=== PATIENT | female | born 1980 | race Caucasian/White ===

== ENCOUNTER 2016-05-30 15:18 | Emergency (ER) | payer BC ==
[2016-05-30 16:40] VITALS: BP 99/65
--- NOTE | 2016-05-30 16:44 | UC ---
Throat Pain/Nasal Kennedy HPI - HPI Summary HPI Summary: long lasting sinus congestion. just doesnt go away, denies fever or throat pain. - History of Current Complaint Stated Complaint: SINUSES Time Seen by Provider: 05/30/16 16:32 Hx Obtained From: Patient Hx Last Menstrual Period: Mirena ?: No Onset/Duration: Gradual Onset, Lasting Weeks Severity: Moderate Associated Signs & Symptoms: Positive: Sinus Discomfort Related History: Seasonal Allergies - Allergies/Home Medications Allergies/Adverse Reactions: Allergies Allergy/AdvReac Type Severity Reaction Status Date / Time Sulfa Antibiotics Allergy Hives Verified 05/01/15 11:00 PMH/Surg Hx/FS Hx/Imm Hx Previously Healthy: Yes Endocrine History Of: Denies: Diabetes Cardiovascular History Of: Denies: Cardiac Disorders Respiratory History Of: Denies: COPD GI/ History Of: Denies: Gastroesophageal Reflux Neurological History Of: Denies: CVA Psychological History Of: Denies: Anxiety Cancer History Of: Denies: Lung Cancer Other History Of: Negative For: HIV - Surgical History Surgical History: Yes Surgery Procedure, Year, and Place: VARICOSE VEIN REMOVAL. Laminectomy L5-S1 - Family History Known Family History: Negative: Cardiac Disease, Hypertension - Social History Alcohol Use: None Substance Use Type: None Smoking Status (MU): Never Smoked Tobacco Have You Smoked in the Last Year: No Review of Systems Constitutional: Negative Skin: Negative Eyes: Negative ENT: Other - fronal sinus pressure Respiratory: Negative Cardiovascular: Negative Gastrointestinal: Negative Genitourinary: Negative Motor: Negative Neurovascular: Negative Musculoskeletal: Negative Neurological: Headache Psychological: Negative All Other Systems Reviewed And Are Negative: Yes Physical Exam Triage Information Reviewed: Yes Appearance: Well-Appearing, Well-Nourished, Pain Distress Vital Signs Reviewed: Yes Eye Exam: Normal Eyes: Positive: Conjunctiva Clear ENT: Positive: Hearing grossly normal, Pharyngeal erythema, Nasal congestion, TMs normal Dental Exam: Normal Neck exam: Normal Neck: Positive: Supple, Nontender, No Lymphadenopathy Respiratory Exam: Normal Respiratory: Positive: Chest non-tender, Lungs clear, Normal breath sounds Cardiovascular Exam: Normal Cardiovascular: Positive: RRR, No Murmur, Pulses Normal Abdominal Exam: Normal Abdomen Description: Positive: Nontender, No Organomegaly, Soft Bowel Sounds: Positive: Present Musculoskeletal Exam: Normal Musculoskeletal: Positive: Strength Intact, ROM Intact, No Edema Neurological Exam: Normal Neurological: Positive: Alert, Muscle Tone Normal Psychological Exam: Normal Skin Exam: Normal Throat Pain/Nasal Course/Dx - Course Course Of Treatment: hx obtianed, exam performed, meds reviewed, educated on sinus drainage. prednisone prescribed - Differential Dx/Diagnosis Differential Diagnosis/HQI/PQRI: Influenza, Laryngitis, Otitis Media, Pharyngitis, Sinusitis, Tonsillitis, URI Provider Diagnoses: sinus congestions. [place] Discharge - Discharge Plan Condition: Stable Disposition: HOME Prescriptions: predniSONE TAB* [Deltasone TAB*] 40 mg PO DAILY #10 tab Patient Education Materials: Rhinosinusitis (ED) Additional Instructions: 1. take the prednisone as prescribed. 2. Steam and eucalyptus will help open sinuses 3. Neti pot use recommended.
== END 2016-05-30 17:02 | disposition home or self-care (01) ==
LOC: UCCORT 15:18
DX: R09.81 Nasal congestion (principal); R51 Headache; Z88.2 Allergy status to sulfonamides
CPT/HCPCS: 99212; G0463

== ENCOUNTER 2016-08-16 12:29 | Emergency (ER) | payer BC ==
[2016-08-16 14:19] VITALS: BP 92/55
--- NOTE | 2016-08-16 14:36 | UC ---
Throat Pain/Nasal Kennedy HPI - HPI Summary HPI Summary: 36 yo female with sinus pressure and pain as well as post nasal drip for > 1 1/ 2 weeks no f/c has sore throat and swollen glands MANS[place] some myalgias and low energy - History of Current Complaint Chief Complaint: UCRespiratory Stated Complaint: SINUS COMPLAINT Time Seen by Provider: 08/16/16 14:27 Hx Obtained From: Patient Hx Last Menstrual Period: unknown, Mirena Onset/Duration: Gradual Onset, Lasting Weeks Severity: Moderate Pain Intensity: 4 Pain Scale Used: 0-10 Numeric Cough: Nonproductive Associated Signs & Symptoms: Positive: Sinus Discomfort, Nasal Discharge - Allergies/Home Medications Allergies/Adverse Reactions: Allergies Allergy/AdvReac Type Severity Reaction Status Date / Time Sulfa Antibiotics Allergy Hives Verified 08/16/16 14:19 PMH/Surg Hx/FS Hx/Imm Hx Previously Healthy: Yes - LUPUS Other History Of: Negative For: HIV - Surgical History Surgical History: Yes Surgery Procedure, Year, and Place: VARICOSE VEIN REMOVAL. Laminectomy L5-S1 - Family History Known Family History: Positive: Other - EUNICE Negative: Cardiac Disease, Hypertension - Social History Alcohol Use: None Substance Use Type: None Smoking Status (MU): Never Smoked Tobacco Have You Smoked in the Last Year: No - Immunization History Most Recent Influenza Vaccination: [id number] Review of Systems Constitutional: Negative Skin: Negative Eyes: Negative ENT: Sore Throat, Ear Ache, Nasal Discharge, Sinus Congestion, Sinus Pain/ Tenderness Respiratory: Cough Cardiovascular: Negative Gastrointestinal: Negative Genitourinary: Negative Motor: Negative Neurovascular: Negative Musculoskeletal: Negative Neurological: Negative Psychological: Negative All Other Systems Reviewed And Are Negative: Yes Physical Exam Triage Information Reviewed: Yes Appearance: Well-Appearing, No Pain Distress, Well-Nourished Vital Signs: Initial Vital Signs Temp 98.3 F 08/16/16 14:14 Pulse 71 08/16/16 14:14 Resp 16 08/16/16 14:14 BP 92/55 08/16/16 14:14 Pulse Ox 98 08/16/16 14:14 Vital Signs Reviewed: Yes Eyes: Positive: Conjunctiva Clear ENT: Positive: Hearing grossly normal, Pharyngeal erythema, Nasal congestion, Nasal drainage. Negative: TMs normal - unable to see right TM due to cerumen, Tonsillar swelling, Tonsillar exudate, Trismus, Muffled/hoarse voice Dental: Negative: Abscess @ Neck: Positive: Supple, Enlarged Nodes @ - anterior cervical Respiratory: Positive: Lungs clear, Normal breath sounds, No respiratory distress, No accessory muscle use Cardiovascular: Positive: RRR, No Murmur, Pulses Normal Musculoskeletal: Positive: ROM Intact, No Edema Neurological Exam: Normal Neurological: Positive: Alert Psychological Exam: Normal Skin Exam: Normal Throat Pain/Nasal Course/Dx - Course Course Of Treatment: pt has flonase at home, I advised her to use it as well as saline nasal spray (otc) - Differential Dx/Diagnosis Provider Diagnoses: acute sinusitis Discharge - Discharge Plan Condition: Stable Disposition: HOME Prescriptions: Clarithromycin TAB* [Biaxin 500 MG TAB*] 500 mg PO BID #20 tab Fluconazole 150 MG (NF) [Diflucan 150 mg (NF)] 150 mg PO ONCE #1 tab Patient Education Materials: Sinusitis (ED) Referrals: Diana Elias PA [Primary Care Provider] - 1 Week (if not better)
== END 2016-08-16 14:40 | disposition home or self-care (01) ==
LOC: UCCORT 12:29
DX: J01.90 Acute sinusitis, unspecified (principal); M32.9 Systemic lupus erythematosus, unspecified; Z88.2 Allergy status to sulfonamides
CPT/HCPCS: 99212; G0463

== ENCOUNTER 2016-09-24 09:05 | Emergency (ER) | payer BC ==
[2016-09-24 11:11] VITALS: BP 95/57
--- NOTE | 2016-09-24 11:39 | UC ---
Ear Complaint HPI - HPI Summary HPI Summary: 3 days of worsening pain in rt ear and jaw pain. 5/10, intermittent throbbing pain that last for minutes to hour. can close jaw all the way on rt. - History of Current Complaint Chief Complaint: UCEar Stated Complaint: EAR COMPLAINT Time Seen by Provider: 09/24/16 11:13 Hx Obtained From: Patient Hx Last Menstrual Period: n/a on Mirena ?: No Onset/Duration: Gradual Onset, Lasting Days - 3, Still Present Severity Initially: Moderate Severity Currently: Moderate Aggravating Factors: Nothing Alleviating Factors: Nothing Associated Signs/Symptoms: Negative: Discharge, Hearing Loss, Foreign Body Sensation, Trauma to Ear, Swelling @, URI Symptoms - Allergies/Home Medications Allergies/Adverse Reactions: Allergies Allergy/AdvReac Type Severity Reaction Status Date / Time Sulfa Antibiotics Allergy Hives Verified 09/24/16 11:11 PMH/Surg Hx/FS Hx/Imm Hx - Additional Past Medical History Additional PMH: lupus Other History Of: Negative For: HIV - Surgical History Surgical History: Yes Surgery Procedure, Year, and Place: VARICOSE VEIN REMOVAL. Laminectomy L5-S1 - Family History Known Family History: Positive: Other - EUNICE Negative: Cardiac Disease, Hypertension - Social History Lives: With Family Alcohol Use: None Substance Use Type: None Smoking Status (MU): Never Smoked Tobacco Have You Smoked in the Last Year: No - Immunization History Most Recent Influenza Vaccination: [id number] Review of Systems Constitutional: Negative Skin: Negative Eyes: Negative ENT: Ear Ache Respiratory: Negative Cardiovascular: Negative Neurological: Headache - none currently Psychological: Negative All Other Systems Reviewed And Are Negative: Yes Physical Exam Triage Information Reviewed: Yes Appearance: Well-Appearing, No Pain Distress, Well-Nourished Vital Signs: Initial Vital Signs Temp 98.7 F 09/24/16 11:07 Pulse 79 09/24/16 11:07 Resp 14 09/24/16 11:07 BP 95/57 09/24/16 11:07 Pulse Ox 99 09/24/16 11:07 Vital Signs Reviewed: Yes Eyes: Positive: Conjunctiva Clear. Negative: Discharge ENT: Positive: Hearing grossly normal, Pharynx normal, TMs normal. Negative: Nasal congestion, Nasal drainage, Tonsillar swelling, Tonsillar exudate, Trismus , Muffled/hoarse voice Dental: Positive: Other: - high narrow palate, crowded lower jaw, bl pterygoid spasm r>l Neck: Positive: Supple, Nontender, No Lymphadenopathy Respiratory: Positive: Lungs clear, Normal breath sounds, No respiratory distress, No accessory muscle use Cardiovascular: Positive: RRR, No Murmur Musculoskeletal: Positive: Other: - high narrow palate, crowded lower jaw, bl pterygoid spasm r>l Neurological: Positive: Alert, Muscle Tone Normal Ear Complaint Course/Dx - Differential Dx/Diagnosis Differential Diagnosis/HQI/PQRI: Cerumen Impaction, Otitis Externa, Otitis Media , Perforated TM, TMJ Syndrome, Trigeminal Nueralgia, URI Provider Diagnoses: tmj Discharge - Discharge Plan Condition: Stable Disposition: HOME Patient Education Materials: Temporomandibular Disorder (ED) Referrals: Diana Elias PA [Primary Care Provider] - If Needed Additional Instructions: YOU WOULD LIKELY BENEFIT FROM OSTEOPATHIC TREATMENT. WE RECOMMEND THAT YOU FIND AN OSTEOPATHIC PHYSICIAN IN YOUR AREA WHO FOCUSES EXCLUSIVELY ON OSTEOPATHIC MANIPULATIVE MEDICINE WITH EXPERTISE IN MYOFACIAL, LYMPHATIC, VISCERAL AND INTEROSSEOUS WORK
== END 2016-09-24 11:39 | disposition home or self-care (01) ==
LOC: UCCORT 09:05
DX: M26.609 Unspecified temporomandibular joint disorder, unspecified side (principal); Z88.2 Allergy status to sulfonamides
CPT/HCPCS: 99211; G0463

== ENCOUNTER 2017-02-05 15:58 | Emergency (ER) | payer BC ==
[2017-02-05 16:36] VITALS: BP 107/69
--- NOTE | 2017-02-05 16:48 | UC ---
Throat Pain/Nasal Kennedy HPI - HPI Summary HPI Summary: ONE WEEK OF WORSENING SINUS CONGESTION, SINUS PRESSURE. HISTORY OF FREQUENT SINUS INFECTIONS. NO FEVER. 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 - History of Current Complaint Chief Complaint: UCGeneralIllness Stated Complaint: SINUSES Time Seen by Provider: 02/05/17 16:36 Hx Obtained From: Patient, Family/Electronic Engraver Hx Last Menstrual Period: has IUD Onset/Duration: Gradual Onset, Lasting Weeks, Still Present Severity: Mild Cough: Nonproductive Associated Signs & Symptoms: Positive: Negative - Epiglottits Risk Factors Epiglottis Risk Factors: Negative - Allergies/Home Medications Allergies/Adverse Reactions: Allergies Allergy/AdvReac Type Severity Reaction Status Date / Time Sulfa Antibiotics Allergy Hives Verified 02/05/17 16:31 Home Medications: Home Medications Allergy Injections X2 WEEKLY 02/05/17 [History] PMH/Surg Hx/FS Hx/Imm Hx Previously Healthy: Yes Other History Of: Negative For: HIV - Surgical History Surgical History: Yes Surgery Procedure, Year, and Place: VARICOSE VEIN REMOVAL. Laminectomy L5-S1 - Family History Known Family History: Positive: Other - EUNICE Negative: Cardiac Disease, Hypertension - Social History Occupation: Employed Full-time Lives: With Family Alcohol Use: None Substance Use Type: None Smoking Status (MU): Never Smoked Tobacco Have You Smoked in the Last Year: No - Immunization History Most Recent Influenza Vaccination: 11/2016 Review of Systems Constitutional: Negative Skin: Negative Eyes: Negative ENT: Sinus Congestion, Sinus Pain/Tenderness Respiratory: Cough Cardiovascular: Negative Gastrointestinal: Negative Genitourinary: Negative Motor: Negative Neurovascular: Negative Musculoskeletal: Negative Neurological: Negative Psychological: Negative Is Patient Immunocompromised?: No All Other Systems Reviewed And Are Negative: Yes Physical Exam Triage Information Reviewed: Yes Appearance: Well-Appearing, No Pain Distress, Well-Nourished Vital Signs: Initial Vital Signs Temp 98.3 F 02/05/17 16:28 Pulse 83 02/05/17 16:28 Resp 16 02/05/17 16:28 BP 107/69 02/05/17 16:28 Pulse Ox 100 02/05/17 16:28 Vital Signs Reviewed: Yes Eye Exam: Normal ENT Exam: Normal ENT: Positive: Normal ENT inspection, Hearing grossly normal, Pharynx normal Dental Exam: Normal Neck exam: Normal Neck: Positive: Supple, Nontender, No Lymphadenopathy Respiratory Exam: Other - COUGH Respiratory: Positive: Chest non-tender, Lungs clear, Normal breath sounds, No respiratory distress, No accessory muscle use Cardiovascular Exam: Normal Cardiovascular: Positive: RRR, No Murmur, Pulses Normal, Brisk Capillary Refill Abdominal Exam: Normal Abdomen Description: Positive: Nontender, No Organomegaly Musculoskeletal Exam: Normal Neurological Exam: Normal Psychological Exam: Normal Skin Exam: Normal Throat Pain/Nasal Course/Dx - Differential Dx/Diagnosis Differential Diagnosis/HQI/PQRI: Pharyngitis, Sinusitis, Tonsillitis, URI Provider Diagnoses: SINUSITIS Discharge - Discharge Plan Condition: Stable Disposition: HOME Prescriptions: Amoxicillin/Clavulanate TAB* [Augmentin TAB 875*] 875 mg PO BID #20 tab Patient Education Materials: Sinusitis (ED) Referrals: Diana Elias PA [Primary Care Provider] -
== END 2017-02-05 16:48 | disposition home or self-care (01) ==
LOC: UCCORT 15:58
DX: J32.9 Chronic sinusitis, unspecified (principal)
CPT/HCPCS: 99212; G0463

== ENCOUNTER 2019-04-05 09:49 | Emergency (ER) | payer BC ==
[2019-04-05 12:24] VITALS: BP 109/72
--- NOTE | 2019-04-05 12:41 | UC ---
Throat Pain/Nasal Kennedy HPI - HPI Summary HPI Summary: 39 y/o female presents to the urgent care c/o sinus congestion and pressure, with green nasal discharge for 1 week. Symptoms have gotten worse w/ MANS[place], B/l ear pain and sore throat. Pt has taken Mucinex PO w/o any improvement. Sinus pain is 6/10. Moderate PND w/ green phlegm that is triggering persistent cough. Pt denies fever, dizziness, SoB, chest pain, abdominal pain, N/V/D. - History of Current Complaint Chief Complaint: UCGeneralIllness Stated Complaint: SINUS, EAR, THROAT COMPLAINT Time Seen by Provider: 04/05/19 12:27 Hx Obtained From: Patient Hx Last Menstrual Period: IUD ?: No Onset/Duration: Gradual Onset, Lasting Weeks - 1 week, Still Present, Worse Since - 2 days w/ sinus pain and pressure Severity: Moderate Pain Intensity: 6 Pain Scale Used: 0-10 Numeric Cough: Nonproductive Associated Signs & Symptoms: Positive: Sinus Discomfort, Nasal Discharge - green. Negative: Dysphagia, Wheezing, Fever - Epiglottits Risk Factors Epiglottis Risk Factors: Negative - Allergies/Home Medications Allergies/Adverse Reactions: Allergies Allergy/AdvReac Type Severity Reaction Status Date / Time Sulfa (Sulfonamide Allergy Unknown Hives Verified 04/05/19 12:25 Antibiotics) Home Medications: Home Medications guaiFENesin ER TAB [Mucinex*] 600 mg PO BID 04/05/19 [History Confirmed 04/05/19 ] PMH/Surg Hx/FS Hx/Imm Hx Previously Healthy: Yes Other Endocrine History: Lupus Other History Of: Negative For: HIV - Surgical History Surgical History: Yes Surgery Procedure, Year, and Place: VARICOSE VEIN REMOVAL. Laminectomy L5-S1 - Family History Known Family History: Positive: None - PT denies FMHX, Other - ENUICE Negative: Cardiac Disease, Hypertension - Social History Occupation: Employed Full-time Lives: With Family Alcohol Use: None Substance Use Type: None Smoking Status (MU): Never Smoked Tobacco Have You Smoked in the Last Year: No - Immunization History Most Recent Influenza Vaccination: [id number] Review of Systems All Other Systems Reviewed And Are Negative: Yes Constitutional: Positive: Negative Skin: Positive: Negative Eyes: Positive: Negative ENT: Positive: Ear Ache - B/l ear pain andpressure, Nasal Discharge - green, Sinus Congestion, Sinus Pain/Tenderness, Other - green PND Respiratory: Positive: Cough - dry Cardiovascular: Positive: Negative Gastrointestinal: Positive: Negative Genitourinary: Positive: Negative Motor: Positive: Negative Neurovascular: Positive: Negative Musculoskeletal: Positive: Negative Neurological: Positive: Headache Psychological: Positive: Negative Is Patient Immunocompromised?: No Physical Exam - Summary Physical Exam Summary: Vitals: reviewed General: Well developed, well-nourished female patient with NAD. Head and face: Normocephalic and atraumatic, Positive moderate tenderness over the frontal and maxillary sinuses.. Eyes: PERRLA, EOMI x 2. Normal conjunctiva. No eye discharge. ENT: Ears and TM with normal limits. Nose: edematous and erythematous nasal mucosa with yellowish discharge and erythematous mucosa. Pharynx with erythema, no exudate. Green PND Neck: Supple, no JVD, no carotid bruits and no lymphadenopathy. Lungs: clear, no rales, no rhonchi, no wheezes. CVS: RRR, S1 and S2 present no murmurs or gallops appreciated. Abdomen: soft nontender with positive bowel sounds. Extremities: no edema noted. Neuro: WNL. Skin: warm and dry Triage Information Reviewed: Yes Vital Signs: Initial Vital Signs Temp 97.3 F 04/05/19 12:22 Pulse 81 04/05/19 12:22 Resp 14 04/05/19 12:22 BP 109/72 04/05/19 12:22 Pulse Ox 100 04/05/19 12:22 Throat Pain/Nasal Course/Dx - Course Course Of Treatment: 39 y/o female presents to the urgent care c/o sinus congestion and pressure, with green nasal discharge for 1 week. Symptoms have gotten worse w/ MANS[place], B/l ear pain and sore throat. Pt has taken Mucinex PO w/o any improvement. Sinus pain is 6/10. Moderate PND w/ green phlegm that is triggering persistent cough. Pt denies fever, dizziness, SoB, chest pain, abdominal pain, N/V/D. Hx obtained. Pt with 1 week of symptoms getting worse. Pt w/ Hx of recurrent sinusitis. Pt Rx Augmentin PO and flonase nasal spray. Discharge instructions explained to Pt. Advised to Return to the clinic or PCP if symptoms do not improve.Pt understood and agreed with plan of care. - Differential Dx/Diagnosis Differential Diagnosis/HQI/PQRI: Influenza, Laryngitis, Pharyngitis, Sinusitis, Tonsillitis, URI Provider Diagnosis: Acute bacterial sinusitis Discharge ED - Sign-Out/Discharge Documenting (check all that apply): Patient Departure - D/C home All imaging exams completed and their final reports reviewed: No Studies - Discharge Plan Condition: Stable Disposition: HOME Prescriptions: Amoxicillin/Clavulanate TAB* [Augmentin TAB 875*] 875 mg PO BID #20 tab Fluconazole 150 MG TAB* [Diflucan 150 MG TAB*] 150 mg PO UC ONCE #1 tablet Patient Education Materials: Sinusitis (ED) Referrals: Diana Elias PA [Primary Care Provider] - 3 Days Additional Instructions: 1- Please increase fluid intake and rest. take full course of antibiotics to avoid resistance. Take yogurts w/ probiotics or Culturelle to protect your GI system 2-Use your Flonase as directed to help drain fluid. Also buy saline drops to clear sinuses 3-Take fluconazole PO if you develop a yeast infection at the end of the antibiotic treatment 4-Please f/u w/ your PCP in 3 days if symptoms do not improve for further management and treatment - Billing Disposition and Condition Condition: STABLE Disposition: Home
== END 2019-04-05 13:10 | disposition home or self-care (01) ==
LOC: UCCORT 09:49
DX: J01.90 Acute sinusitis, unspecified (principal); B96.89 Other specified bacterial agents as the cause of diseases classified elsewhere; M32.9 Systemic lupus erythematosus, unspecified; R05 Cough; Z88.2 Allergy status to sulfonamides
CPT/HCPCS: 99212; G0463